=== PATIENT | female | born 1990 | race Caucasian/White ===

== ENCOUNTER → 2018-10-19 | Outpatient (CLI) | payer BC ==
--- NOTE | 2018-10-20 12:34 | ECHOF ---
Referral Reason:R94.31 Abnormal EKG MEASUREMENTS -------- HEIGHT: 160.0 cm WEIGHT: 83.9 kg BP: RVIDd: 2.7 cm (< 3.3) IVSd: 0.9 cm (0.6 - 1.1) LVIDd: 4.2 cm (3.9 - 5.3) LVPWd: 1.0 cm (0.6 - 1.1) IVSs: 1.2 cm LVIDs: 2.7 cm LVPWs: 1.2 cm LAESV Index (A-L): 15.76 ml/m Ao Diam: 2.5 cm (2.0 - 3.7) AV Cusp: 1.9 cm (1.5 - 2.6) LA Diam: 2.3 cm (2.7 - 3.8) MV EXCURSION: 14.577 mm (> 18.000) MV EF SLOPE: 98 mm/s (70 - 150) EPSS: 0.4 cm MV E Sergo: 0.86 m/s MV DecT: 228 ms MV A Sergo: 0.73 m/s MV E/A Ratio: 1.17 RAP: 5.00 mmHg RVSP: 27.68 mmHg FINDINGS -------- Sinus rhythm. This was a technically good study. The left ventricular size is normal. Left ventricular wall thickness is normal. Overall left vent ricular systolic function is normal with, an EF between 55 - 60 %. The right ventricle is normal in size and function. Normal LA size by volume 22+/-6 ml/m2. The right atrium is normal in size. The aortic valve is trileaflet, and appears structurally normal. No aortic stenosis or regurgitation. The mitral valve is normal. There is trace mitral regurgitation. Trace tricuspid regurgitation present. Right ventricular systolic pressure is normal at < 35 mmHg. There is no evidence of pulmonary hypertension. Trace/mild (physiologic) pulmonic regurgitation. The aortic root size is normal. Normal inferior vena cava with normal inspiratory collapse consistent with estimated right atrial pre ssure of 5 mmHg. There is no pericardial effusion. CONCLUSIONS -------- 1. Sinus rhythm. 2. This was a technically good study. 3. The left ventricular size is normal. 4. Left ventricular wall thickness is normal. 5. Overall left ventricular systolic function is normal with, an EF between 55 - 60 %. 6. Normal LA size by volume 22+/-6 ml/m2. 7. The aortic valve is trileaflet, and appears structurally normal. No aortic stenosis or regurgitati on. 8. There is trace mitral regurgitation. 9. Trace tricuspid regurgitation present. 10. Right ventricular systolic pressure is normal at < 35 mmHg. 11. There is no evidence of pulmonary hypertension. 12. Trace/mild (physiologic) pulmonic regurgitation. 13. The aortic root size is normal. 14. There is no pericardial effusion. WAITER WAITRESS: Cecilio Gautam RDCS
== END | disposition home or self-care (01) ==
LOC: RADECHMAIN 16:24
PROVIDERS: ATTEND Family Medicine
DX: I37.1 Nonrheumatic pulmonary valve insufficiency (principal)
CPT/HCPCS: 93306

== ENCOUNTER → 2018-10-30 | Outpatient (CLI) | payer BC ==
--- NOTE | 2018-10-30 14:26 | US ---
EXAMINATION TYPE: US abdomen complete DATE OF EXAM: 10/30/2018 COMPARISON: NONE CLINICAL HISTORY: Rt Upper Quad pain R10.11. EXAM MEASUREMENTS: Liver Length: 12.0 cm Gallbladder Wall: 0.4 cm CBD: 0.4 cm Spleen: 9.6 cm Right Kidney: 11.1 x 3.6 x 4.3 cm Left Kidney: 9.8 x 5.1 x 4.9 cm Patient of large body habitus, severe overlying midline bowel gas. Pancreas: Obscured by bowel gas Liver: visualization somewhat limited, appears wnl as seen Gallbladder: cholelithiasis, echogenic foci seen in wall, wall thickened Evidence for sonographic Slade's sign: no CBD: wnl Spleen: wnl Right Kidney: No hydronephrosis or masses seen Left Kidney: Inferior pole obscured by bowel gas, appears wnl as seen, measured smaller than right, may be due to overlying bowel gas obscuring Upper IVC: wnl Abd Aorta: partially obscured by overlying bowel gas, portions visualized wnl The liver is homogenous. The intrahepatic portion of the IVC and proximal abdominal aorta are within normal limits. Common bile duct is unremarkable. The visualized portions of the pancreas are homo genous. The spleen is unremarkable. Kidneys are symmetric and free of hydronephrosis. No renal les ions are seen. IMPRESSION: 1. Gallbladder is contracted and filled with multiple gallstones. There is also mild gallbladder wall thickening that could relate to chronic cholecystitis. No common bile duct dilatation or sonographic Slade sign to suggest acute cholecystitis. 2. Suboptimal visualization of the left kidney.
--- NOTE | 2018-10-30 14:43 | US ---
EXAMINATION TYPE: US pelvic complete DATE OF EXAM: 10/30/2018 COMPARISON: NONE CLINICAL HISTORY: Rt Upper Quad pain R10.11. TECHNIQUE: Transabdominal (TA). Date of LMP: 09/28/18 EXAM MEASUREMENTS: Uterus: 8.1 x 3.1 x 4.3 cm Endometrial Stripe: 0.8 cm Right Ovary: 2.2 x 1.8 x 1.7 cm Left Ovary: 2.8 x 2.0 x 2.2 cm 1. Uterus: small amount of ff anterior to uterus 2. Endometrium: wnl 3. Right Ovary: wnl 4. Left Ovary: wnl 5. Bilateral Adnexa: Right adnexa, lateral shows ff 6. Posterior cul-de-sac: wnl IMPRESSION: Small amount of pelvic free fluid is likely physiologic in nature. Trace amount of free f luid surrounding the right adnexa may relate to recently ruptured cyst. Otherwise the exam is unremar kable.
== END ==
LOC: RADUSWWP 12:53
PROVIDERS: ATTEND Family Medicine
DX: K80.20 Calculus of gallbladder without cholecystitis without obstruction (principal); K82.9 Disease of gallbladder, unspecified
CPT/HCPCS: 76700; 76856

== ENCOUNTER 2019-11-03 07:15 | Day surgery (SDC) | payer BC ==
[2019-10-29 13:01] VITALS: BMI 38.4
[~2019-11-03 07:15] MED LIST: DEXAMETHASONE SOD PHOSPHATE 10 MG/ML 1 ML VIAL IV ONE; HEPARIN SODIUM,PORCINE 5,000 UNIT/ML 1 ML VIAL SQ ONE; LACTATED RINGERS 1,000 ML IV SCH; LIDOCAINE 1% (10MG/ML) FOR IV START INTRADERMA PRN; MIDAZOLAM 2 MG/2 ML VIAL IV PRN; ONDANSETRON 4 MG/2 ML VIAL IVP ONE; SCOPOLAMINE 1.5MG/72HR PATCH TRANSDERM ONE
[2019-11-03] MEDS ORDERED: GLYCOPYRROLATE 0.2 MG/ML 2 ML VIAL ONE (08:19)
[2019-11-03] MEDS ORDERED: LIDOCAINE 1% INJ 10MG/ML (20 ML MDV) ONE (08:19)
[2019-11-03] MEDS ORDERED: ROCURONIUM BROMIDE 10 MG/ML 5 ML VIAL IV ONE (08:19)
[2019-11-03] MEDS ORDERED: fentaNYL (PF) 50 MCG/ML 2 ML AMP ONE (08:19)
[2019-11-03] MEDS ORDERED: SUCCINYLCHOLINE CHLORIDE 100 MG/5 ML SYR IV ONE (08:19)
[2019-11-03] MEDS ORDERED: KETOROLAC 30 MG/ML 1 ML VIAL ONE (08:19)
[2019-11-03] MEDS ORDERED: PROPOFOL 10 MG/ML 20 ML VIAL IV ONE (08:19)
[2019-11-03] MEDS ORDERED: NEOSTIGMINE 1 MG/ML 10 ML VIAL ONE (08:19)
[2019-11-03] MEDS ORDERED: MIDAZOLAM 2 MG/2 ML VIAL ONE (08:19)
[2019-11-03] MEDS ORDERED: BUPIVACAINE (PF) 0.25% 30 ML VIAL SQ ONE (08:49)
[2019-11-03] MEDS ORDERED: NALOXONE 0.4 MG/ML 1 ML VIAL IV PRN (09:33)
[2019-11-03] MEDS ORDERED: HYDROcodone/APAP 5-325MG 1 EACH TAB PO PRN (09:33)
--- NOTE | 2019-11-03 09:35 | P.OP ---
Date of Procedure: 11/03/19 Procedure(s) Performed: PREOPERATIVE DIAGNOSIS: Chronic cholecystitis POSTOPERATIVE DIAGNOSIS: Same PROCEDURE: Laparoscopic cholecystectomy SURGEON: Crystal EBL: Minimal see anesthesia record ANESTHESIA: Gen. COMPLICATIONS: None OPERATIVE PROCEDURE: The patient was brought and placed on the operating room table in the supine position. The patient was placed under general anesthesia at that time. The abdomen was prepped and draped in the usual sterile fashion. A small vertical infraumbilical incision was made. The fascia was grasped with the Randall forceps. The fascia was retracted anteriorly. The Veress needle was advanced into the peritoneal cavity. The saline drop test was normal. Insufflation took place up to 15 mmHg. A 5 mm optical trocar was advanced and the peritoneal cavity. 2 additional 5 mm trochars were placed in the right upper quadrant under direct visualization. A 12 mm trocar was advanced into the epigastric incision site. The gallbladder was retracted superiorly and laterally. The peritoneum overlying the infundibulum was bluntly dissected. The patient's cystic duct was visualized. The junction between the cystic duct common and hepatic duct was identified. The cystic duct was then divided after placement of 3 12 mm clips on the patient's side and one on the specimen side. The cystic artery was identified and clipped as well. A small vessel was seen along the gallbladder fossa and clipped as well. The gallbladder was then removed from the liver bed using electrocautery. The gallbladder was then removed from the epigastric trocar site with an Endo Catch bag. The gallbladder fossa was irrigated with saline. There was no evidence of any bleeding or biliary drainage seen. The fascia at the 12 millimeter site was closed using a Cole-Beth 0 Vicryl stitch. The trochars were then removed. The skin at all 4 sites was closed using a 4-0 Monocryl stitch. Skin glue was utilized on the incision sites. At the end of this procedure the sponge and needle counts were correct. DISPOSITION: Stable to the recovery room
[2019-11-03] MEDS: HYDROmorphone 0.5 MG/0.5 ML SYRINGE IVP PRN ×3 (09:40→10:01)
[2019-11-03 09:51] VITALS: TEMP 97.4
[2019-11-03] MEDS ORDERED: LACTATED RINGERS 1,000 ML IV ONE (10:19)
[2019-11-03 11:32] VITALS: BP 113/77; PULSE 101; RESP 20
== END 2019-11-03 12:08 | disposition home or self-care (01) ==
LOC: OR 07:15
PROVIDERS: ATTEND Surgery
DX: K81.1 Chronic cholecystitis (principal); F32.9 Major depressive disorder, single episode, unspecified; E66.9 Obesity, unspecified; Z68.39 Body mass index [BMI] 39.0-39.9, adult; I10 Essential (primary) hypertension; G47.00 Insomnia, unspecified; Z82.3 Family history of stroke; Z82.49 Family history of ischemic heart disease and other diseases of the circulatory system; Z80.8 Family history of malignant neoplasm of other organs or systems; Z79.1 Long term (current) use of non-steroidal anti-inflammatories (NSAID); Z79.899 Other long term (current) drug therapy; Z88.2 Allergy status to sulfonamides; Z88.8 Allergy status to other drugs, medicaments and biological substances
CPT/HCPCS: 47562; 81025; 88304; J2250; J1644; J1100; J2710; J0690; J2405; J2001; J3010; J1885; J0330; J2704; J1170

== ENCOUNTER → 2020-06-23 | Outpatient (CLI) | payer BC ==
--- NOTE | 2020-06-23 14:20 | US ---
EXAMINATION TYPE: US pelvic complete DATE OF EXAM: 06/23/2020 COMPARISON: Pelvic ultrasound October 30, 2018 CLINICAL HISTORY: R10.2 pelvic pain. pelvic pain before cycles TECHNIQUE: TA. Transabdominal sonographic images of the pelvis were acquired. Date of LMP: 06/18/2020 EXAM MEASUREMENTS: Uterus: 8.1 x 2.8 x 3.9 cm Endometrial Stripe: 0.7 cm Right Ovary: 3.0 x 2.2 x 2.0 cm Left Ovary: 2.7 x 2.0 x 2.1 cm 1. Uterus: Anteverted wnl 2. Endometrium: wnl 3. Right Ovary: wnl 4. Left Ovary: wnl 5. Bilateral Adnexa: wnl 6. Posterior cul-de-sac: wnl IMPRESSION: Unremarkable transabdominal pelvic ultrasound.
== END | disposition home or self-care (01) ==
LOC: RADUSWWP 13:32
PROVIDERS: ATTEND Family Medicine
DX: R10.2 Pelvic and perineal pain (principal)
CPT/HCPCS: 76856

== ENCOUNTER → 2021-06-06 | Outpatient (CLI) | payer BC ==
[2021-06-06 16:04] LABS: Basophils % (A) 0 %; Eosinophils # (A) 0.1 k/uL (0-0.7); Eosinophils % (A) 1 %; HCT 37.3 % (34.0-46.0); HGB 12.1 gm/dL (11.4-16.0); Lymphocytes # (A) 1.9 k/uL (1.0-4.8); Lymphocytes % (A) 22 %; MCH 28.9 pg (25.0-35.0); MCHC 32.5 g/dL (31.0-37.0); MCV 88.9 fL (80.0-100.0); Mean Platelet Volume 7.7; Monocytes # (A) 0.5 k/uL (0-1.0); Monocytes % (A) 6 %; Neutrophils # (A) 5.9 k/uL (1.3-7.7); Neutrophils % (A) 70 %; Platelet Count 300 k/uL (150-450); RBC 4.19 m/uL (3.80-5.40); RDW 12.2 % (11.5-15.5); WBC 8.5 k/uL (3.8-10.6)
== END | disposition home or self-care (01) ==
LOC: LABPAT 15:20
PROVIDERS: ATTEND Obstetrics & Gynecology
DX: O02.1 Missed abortion (principal); O10.919 Unspecified pre-existing hypertension complicating pregnancy, unspecified trimester; O99.891 Other specified diseases and conditions complicating pregnancy; R00.1 Bradycardia, unspecified; Z3A.00 Weeks of gestation of pregnancy not specified
CPT/HCPCS: 36415; 85025; 93005

== ENCOUNTER 2021-06-08 07:37 | Day surgery (SDC) | payer BC ==
[2021-06-06 10:10] VITALS: BMI 37.5
[~2021-06-08 07:37] MED LIST changes: -DEXAMETHASONE SOD PHOSPHATE 10 MG/ML 1 ML VIAL IV ONE; +DEXAMETHASONE SOD PHOSPHATE 4 MG/ML 1 ML VIAL IV ONE; -HEPARIN SODIUM,PORCINE 5,000 UNIT/ML 1 ML VIAL SQ ONE; -LIDOCAINE 1% (10MG/ML) FOR IV START INTRADERMA PRN; +Pre Op ABX Message 1 EACH MISC MISCELLANE ONE
[2021-06-08] MEDS ORDERED: PROPOFOL 10 MG/ML 20 ML VIAL IV ONE (09:24)
[2021-06-08] MEDS ORDERED: fentaNYL (PF) 50 MCG/ML 2 ML AMP ONE (09:24)
[2021-06-08] MEDS ORDERED: LIDOCAINE 1% INJ 10MG/ML (20 ML MDV) ONE (09:24)
[2021-06-08] MEDS ORDERED: MIDAZOLAM 2 MG/2 ML VIAL ONE (09:24)
[2021-06-08] MEDS ORDERED: KETOROLAC 15 MG/ML 1 ML VIAL ONE (09:24)
[2021-06-08] MEDS ORDERED: ONDANSETRON 4 MG/2 ML VIAL IVP PRN (10:02)
[2021-06-08] MEDS ORDERED: SIMETHICONE 80 MG CHEWABLE PO PRN (10:02)
[2021-06-08] MEDS ORDERED: Acetaminophen-Codeine 300-30mg TAB PO PRN ×2 (10:02)
[2021-06-08] MEDS ORDERED: METOCLOPRAMIDE 5 MG/ML 2 ML VIAL IVP PRN (10:02)
[2021-06-08] MEDS ORDERED: KETOROLAC 15 MG/ML 1 ML VIAL IVP PRN (10:02)
[2021-06-08] MEDS ORDERED: diphenhydrAMINE 50 MG/ML 1 ML VIAL IVP PRN (10:02)
--- NOTE | 2021-06-08 10:06 | P.OP ---
Date of Procedure: 06/08/21 Preoperative Diagnosis: #1. 7+ weeks missed Postoperative Diagnosis: Same Procedure(s) Performed: #1. Dilation and aspiration curettage Anesthesia: other (Gen. by LMA) Surgeon: Hill Diggs Estimated Blood Loss (ml): 100 IV fluids (ml): 400 Urine output (ml): 30 Pathology: other (Endometrial contents) Condition: stable Disposition: PACU Operative Findings: Preoperative pelvic examination inserted a roughly 7 week slightly anteverted mobile normal shaped uterus with normal adnexa bilaterally. Intraoperatively, the uterus sounded to approximately 10 cm. A #8 curved aspiration curet was utilized and there was tissue clearly seen passing through the tubing on the first pass. The typical gritty texture was encountered with sharp curettage. Description of Procedure: The patient was prepped and draped in usual fashion after general anesthesia was initially by the anesthesiologist. A weighted speculum was placed and the bladder drained of approximately 30 mL of clear edil urine. The anterior lip the cervix was grasped with a single-tooth tenaculum and the uterus sounded to 10 cm as noted above. Serial dilation was carried out to admit a #8 curved aspiration curet which was placed to the fundus and suction applied. After adequate suction had been built, thorough and circumferential curettage was carried out from fundus to cervix with tissue clearly seen passing through the tubing on the first pass. A second pass was made at which time no further tissue was noted. The suction curet was set aside for a small sharp curette was utilized to thoroughly and circumferentially curet the lining of the uterus with the typical gritty texture encountered and no further tissue noted. One last pass was made with aspiration curet at which time no further tissue was noted. All instrumentation was removed. There was no significant ongoing bleeding from either the cervix or the tenaculum site. Estimated blood loss for the case is approximately 100 mL. There were no complications. All sponge, instrument, and needle counts were correct. The patient tolerated the procedure well and proceeded to the recovery room in stable condition.
[2021-06-08 10:14] VITALS: TEMP 97.8
[2021-06-08] MEDS ORDERED: LACTATED RINGERS 1,000 ML IV SCH (10:15)
[2021-06-08] MEDS: HYDROmorphone 0.5 MG/0.5 ML SYRINGE IVP PRN ×2 (10:19→10:33)
[2021-06-08] MEDS ORDERED: LACTATED RINGERS 1,000 ML IV ONE (10:34)
[2021-06-08 11:04] VITALS: RESP 16
[2021-06-08 11:31] VITALS: BP 118/80; PULSE 56
== END 2021-06-08 11:32 | disposition home or self-care (01) ==
LOC: OR 07:37
PROVIDERS: ATTEND Obstetrics & Gynecology
DX: O02.1 Missed abortion (principal); I10 Essential (primary) hypertension; Z90.49 Acquired absence of other specified parts of digestive tract; Z98.890 Other specified postprocedural states; Z82.49 Family history of ischemic heart disease and other diseases of the circulatory system; Z82.3 Family history of stroke; Z83.3 Family history of diabetes mellitus; Z80.3 Family history of malignant neoplasm of breast; Z79.3 Long term (current) use of hormonal contraceptives; Z79.899 Other long term (current) drug therapy; Z88.2 Allergy status to sulfonamides; Z88.8 Allergy status to other drugs, medicaments and biological substances
CPT/HCPCS: 59820; 86900; 86901; 88305; 86850; J2250; J1100; J2405; J2001; J3010; J1885; J2704; J1170

== ENCOUNTER → 2021-10-10 | Outpatient (CLI) | payer BC | END | disposition home or self-care (01) | LOC: LABWHC1 10:24 | PROVIDERS: ATTEND Obstetrics & Gynecology | DX: O20.0 Threatened abortion (principal); Z3A.00 Weeks of gestation of pregnancy not specified | CPT/HCPCS: 36415; 84702; 86850; 86900; 86901 ==

== ENCOUNTER → 2021-10-12 | Outpatient (CLI) | payer BC | END | disposition home or self-care (01) | LOC: LABWHC1 10:56 | PROVIDERS: ATTEND Obstetrics & Gynecology | DX: O20.0 Threatened abortion (principal); Z3A.00 Weeks of gestation of pregnancy not specified | CPT/HCPCS: 36415; 84702 ==

== ENCOUNTER 2022-05-10 16:00 | Inpatient (IN) | payer BC ==
[2022-05-10] MEDS ORDERED: DINOPROSTONE 10 MG INSERT.ER VAGINAL ONE (16:19)
[2022-05-10 17:18] LABS: Glucose,Whole Blood 115 mg/dL (70-110)
[2022-05-10] MEDS: LABETALOL 100 MG TAB PO SCH (22:58)
[2022-05-11] MEDS: BUTORPHANOL 1 MG/ML 1 ML VIAL IV PRN ×3 (00:06→06:18)
[2022-05-11 00:33] LABS: Basophils % (A) 1 %; Eosinophils # (A) 0.1 k/uL (0-0.7); Eosinophils % (A) 1 %; HCT 33.1 % (34.0-46.0); HGB 10.9 gm/dL (11.4-16.0); Lymphocytes # (A) 1.6 k/uL (1.0-4.8); Lymphocytes % (A) 18 %; MCH 28.6 pg (25.0-35.0); MCHC 33.1 g/dL (31.0-37.0); MCV 86.5 fL (80.0-100.0); Mean Platelet Volume 9.3; Monocytes # (A) 0.4 k/uL (0-1.0); Monocytes % (A) 5 %; Neutrophils # (A) 6.7 k/uL (1.3-7.7); Neutrophils % (A) 75 %; Platelet Count 228 k/uL (150-450); RBC 3.82 m/uL (3.80-5.40); RDW 13.5 % (11.5-15.5); WBC 8.9 k/uL (3.8-10.6)
[2022-05-11] MEDS ORDERED: CARBOPROST TROMETHAMINE 250 MCG/ML 1 ML AMP IM PRN (05:41)
[2022-05-11] MEDS ORDERED: TERBUTALINE 1 MG/ML VIAL SQ PRN (05:41)
[2022-05-11] MEDS ORDERED: METHYLERGONOVINE 0.2 MG/ML 1 ML AMP IM PRN (05:41)
[2022-05-11] MEDS ORDERED: OXYTOCIN 10 UNIT/ML 1 ML VIAL IM PRN (05:41)
[2022-05-11] MEDS ORDERED: LIDOCAINE 0.5% (PF) 5 MG/ML (50 ML SDV) SQ PRN (05:41)
[2022-05-11] MEDS: LACTATED RINGERS 1,000 ML IV SCH ×3 (05:45→10:28)
[2022-05-11] MEDS ORDERED: OXYTOCIN 30 UNITS/500 ML NS 30 UNIT in SALINE 1 500ML.BAG IV SCH (05:45)
[2022-05-11 05:53] LABS: Glucose,Whole Blood 114 mg/dL (70-110)
[2022-05-11] MEDS ORDERED: BUPIVACAINE (PF) 0.25% 30 ML VIAL ONE (08:09)
[2022-05-11] MEDS ORDERED: SODIUM CHLORIDE 0.9% 100 ML BAG ONE (08:09)
[2022-05-11] MEDS ORDERED: fentaNYL (PF) 50 MCG/ML 5 ML AMP ONE (08:09)
--- NOTE | 2022-05-11 09:01 | P.HPOB ---
History of Present Illness H&P Date: 05/10/22 Chief Complaint: induction of labor, GHTN, GDMA1 32 year old presents at 38 weeks 6 days for 2 stage induction of labor. Her cervix is closed, thick and high. She is octaviano irregularly. heart tones 135 with moderate variability and reactive. She has GHTN controlled by labetalol 100mg bid. Review of Systems All systems: negative Constitutional: Denies chills, Denies fever Eyes: denies blurred vision, denies pain Ears, nose, mouth and throat: Denies headache, Denies sore throat Cardiovascular: Denies chest pain, Denies shortness of breath Respiratory: Denies cough Gastrointestinal: Denies abdominal pain, Denies diarrhea, Denies nausea, Denies vomiting Genitourinary: Denies dysuria, Denies hematuria Musculoskeletal: Denies myalgias Integumentary: Denies pruritus, Denies rash Neurological: Denies numbness, Denies weakness Psychiatric: Denies anxiety, Denies depression Endocrine: Denies fatigue, Denies weight change Past Medical History Past Medical History: Hypertension Additional Past Medical History / Comment(s): GALL BLADDER DYSFUNCTION - removed 2018, gestational diabetes diet controlled History of Any Multi-Drug Resistant Organisms: None Reported Past Surgical History: Adenoidectomy, Cholecystectomy, Tonsillectomy Past Anesthesia/Blood Transfusion Reactions: No Reported Reaction, Postoperative Nausea & Vomiting (PONV) Past Psychological History: No Psychological Hx Reported Smoking Status: Never smoker Past Alcohol Use History: None Reported Past Drug Use History: None Reported - Past Family History Mother Family Medical History: CVA/TIA Additional Family Medical History / Comment(s): MOM HAD STROKE R/T BLOOD CLOT IN NECK. Medications and Allergies Home Medications Medication Instructions Recorded Confirmed Type Labetalol [Trandate] 50 mg PO BID 06/06/21 05/10/22 History Aspirin 1 tab PO DAILY 05/06/22 05/10/22 History Vit No.179/Iron/Folic 1 tab PO DAILY 05/06/22 05/10/22 History [ Tablet] Allergies Allergy/AdvReac Type Severity Reaction Status Date / Time medroxyprogesterone Allergy Rash/Hives Verified 05/06/22 14:38 [From Depo-Provera] Exam Osteopathic Statement: *. No significant issues noted on an osteopathic structural exam other than those noted in the History and Physical/Consult. Vital Signs Temp Pulse Resp BP Pulse Ox 05/10/22 16:18 98.3 F 88 18 129/92 99 Intake and Output 05/10/22 05/11/22 05/11/22 22:59 06:59 14:59 Other: # Voids 2 3 Weight 102.058 kg Heart: Regular rate and rhythm Lungs: Clear to auscultation bilaterally Abdomen: Soft, nontender Extremities: Negative Homans sign Results Result Diagrams: 05/11/22 00:15 Abnormal Lab Results - Last 24 Hours (Table) 05/10/22 05/11/22 05/11/22 Range/Units 17:16 00:15 05:52 Hgb 10.9 L (11.4-16.0) gm/dL Hct 33.1 L (34.0-46.0) % POC Glucose (mg/dL) 115 H 114 H (70-110) mg/dL Assessment and Plan (1) Encounter for induction of labor Current Visit: Yes Status: Acute Code(s): Z34.90 - ENCNTR FOR SUPRVSN OF NORMAL , UNSP, UNSP TRIMESTER SNOMED Code(s): 547286194 (2) Gestational hypertension Current Visit: Yes Status: Acute Code(s): O13.9 - GESTATIONAL HTN W/O SIGNIFICANT PROTEINURIA, UNSP TRIMESTER SNOMED Code(s): 71539794 (3) Gestational diabetes Current Visit: Yes Status: Acute Code(s): O24.419 - GESTATIONAL DIABETES MELLITUS IN , UNSP CONTROL SNOMED Code(s): 95300779 Plan: 1. induction of labor with cervidil and then amniotomy and pitocin in the morning
[2022-05-11] MEDS: LABETALOL 100 MG TAB PO SCH (10:04)
[2022-05-11] MEDS ORDERED: diphenhydrAMINE 25 MG CAP PO PRN (18:43)
[2022-05-11] MEDS ORDERED: SIMETHICONE 80 MG CHEWABLE PO PRN (18:43)
[2022-05-11] MEDS ORDERED: BENZOCAINE/MENTHOL SPRAY 1 GM/SPRAY AEROSOL TOPICAL PRN (18:43)
[2022-05-11] MEDS ORDERED: LANOLIN CREAM 5 GM TUBE TOPICAL PRN (18:43)
[2022-05-11] MEDS ORDERED: HYDROCORTISONE 2.5% RECTAL CREAM 30 GM TUBE RECTAL PRN (18:43)
[2022-05-11] MEDS ORDERED: diphenhydrAMINE 50 MG CAP PO PRN (18:43)
[2022-05-11] MEDS ORDERED: ACETAMINOPHEN TAB 325 MG TAB PO PRN (18:43)
[2022-05-11] MEDS ORDERED: ZOLPIDEM 5 MG TAB PO PRN (18:43)
[2022-05-11] MEDS: SENNOSIDES-DOCUSATE SODIUM 1 EACH TAB PO SCH (19:10)
[2022-05-11] MEDS: IBUPROFEN 600 MG TAB PO PRN (19:10)
[2022-05-12] MEDS: LABETALOL 100 MG TAB PO SCH ×3 (03:00→21:06)
--- NOTE | 2022-05-12 06:21 | P.PROBDLV ---
Vaginal Delivery Note - . Vaginal Delivery Note: 32 year old presents at 38 weeks 6 days for 2 stage induction of labor. Her cervix is closed, thick and high. She is octaviano irregularly. heart tones 135 with moderate variability and reactive. She has GHTN controlled by labetalol 100mg bid. Cervidil was placed and then removed 12 hours later. Her cervix was so closed, thin -2. Her membranes spontaneously ruptured at 5:45 AM and clear fluid noted. Soon after that she was 1 cm dilated 100% effaced and -2 station. Pitocin augmentation was started. When she was uncomfortable she did get an epidural. Her cervix was completely dilated at 1604. She pushed for 2 hours and made good progress but was starting to have fatigue.. The patient had all and discussed the vacuum-assisted vaginal delivery with the patient, the father of the baby, nursing staff and myself. We went over risks and benefits. Patient consented to vacuum extracted delivery. The vacuum was placed after the bladder was drained of all urine and position of the baby was noted to be OA and +2 station. There were 3 pulls's and infant's head delivered over intact perineum under epidural anesthesia at 1806. Head delivered OA, anterior shoulder delivered gentle downward guidance for by posterior shoulder and rest of body. Nose and mouth bulb suctioned, cord clamped and cut, infant placed on mother's abdomen. Apgars 8, 9, weight 7 lbs. 12 oz. Placenta delivered spontaneously, intact with three-vessel cord at 1809. Vagina, cervix, and perineum were inspected. First-degree midline laceration was repaired with 3-0 Vicryl. Estimated blood loss 150 mL. Mother and baby in stable condition.
--- NOTE | 2022-05-12 06:24 | P.DS ---
Providers Date of admission: 05/10/22 16:00 Expected date of discharge: 05/12/22 Attending physician: Susanne Brambila Primary care physician: Stated None - Discharge Diagnosis(es) (1) Encounter for induction of labor Current Visit: Yes Status: Resolved (2) Gestational hypertension Current Visit: Yes Status: Resolved (3) Gestational diabetes Current Visit: Yes Status: Resolved (4) Vacuum-assisted vaginal delivery Current Visit: Yes Status: Acute Hospital Course: Patient presented for induction of labor for gestational hypertension and gestational diabetes. She underwent a vacuum-assisted vaginal delivery. course was uncomplicated. She denies nausea, vomiting, chest pain, shortness of breath or any calf pain. Patient will be discharged home day #1 in stable condition to follow-up with me in 6 weeks. Plan - Discharge Summary New Discharge Prescriptions: New Ibuprofen [Motrin] 600 mg PO Q6HR PRN #30 tab PRN Reason: Mild Pain (Scale 1 To 3) No Action Labetalol [Trandate] 50 mg PO BID Vit No.179/Iron/Folic [ Tablet] 1 tab PO DAILY Aspirin 1 tab PO DAILY Discharge Medication List Labetalol [Trandate] 50 mg PO BID 06/06/21 [History] Aspirin 1 tab PO DAILY 05/06/22 [History] Vit No.179/Iron/Folic [ Tablet] 1 tab PO DAILY 05/06/22 [History] Ibuprofen [Motrin] 600 mg PO Q6HR PRN #30 tab 05/12/22 [Rx] Follow up Appointment(s)/Referral(s): Susanne Brambila DO [Doctor of Osteopathic Medicine] - 6 Weeks Discharge Disposition: HOME SELF-CARE
[2022-05-12 07:27] LABS: Basophils % (A) 0 %; Eosinophils # (A) 0.1 k/uL (0-0.7); Eosinophils % (A) 0 %; HCT 29.6 % (34.0-46.0); HGB 9.9 gm/dL (11.4-16.0); Lymphocytes # (A) 1.8 k/uL (1.0-4.8); Lymphocytes % (A) 13 %; MCH 29.8 pg (25.0-35.0); MCHC 33.6 g/dL (31.0-37.0); MCV 88.7 fL (80.0-100.0); Mean Platelet Volume 9.1; Monocytes # (A) 0.5 k/uL (0-1.0); Monocytes % (A) 4 %; Neutrophils # (A) 11.1 k/uL (1.3-7.7); Neutrophils % (A) 81 %; Platelet Count 264 k/uL (150-450); RBC 3.33 m/uL (3.80-5.40); RDW 14.2 % (11.5-15.5); WBC 13.7 k/uL (3.8-10.6)
[2022-05-12] MEDS: SENNOSIDES-DOCUSATE SODIUM 1 EACH TAB PO SCH ×2 (08:05→21:06)
[2022-05-12] MEDS: IBUPROFEN 600 MG TAB PO PRN ×3 (08:05→21:07)
[2022-05-13] MEDS: IBUPROFEN 600 MG TAB PO PRN (08:47)
[2022-05-13] MEDS: LABETALOL 100 MG TAB PO SCH (08:48)
[2022-05-13 09:01] VITALS: BP 124/74; PULSE 95; RESP 14; TEMP 98.1
[2022-05-13] MEDS: SENNOSIDES-DOCUSATE SODIUM 1 EACH TAB PO SCH (09:30)
== END 2022-05-13 15:31 | disposition home or self-care (01) | DRG 807 ==
LOC: 4FBP 16:00
PROVIDERS: ADMIT Obstetrics & Gynecology; ATTEND Obstetrics & Gynecology
PROC: 10D07Z6 Extraction of Products of Conception, Vacuum, Via Natural or Artificial Opening (ICD-10-PCS; principal; 2022-05-11)
PROC: 0HQ9XZZ Repair Perineum Skin, External Approach (ICD-10-PCS; 2022-05-11)
PROC: 4A0HXCZ Measurement of Products of Conception, Cardiac Rate, External Approach (ICD-10-PCS; 2022-05-11)
PROC: 10907ZC Drainage of Amniotic Fluid, Therapeutic from Products of Conception, Via Natural or Artificial Opening (ICD-10-PCS; 2022-05-11)
PROC: 3E033VJ Introduction of Other Hormone into Peripheral Vein, Percutaneous Approach (ICD-10-PCS; 2022-05-11)
DX: O13.4 Gestational [pregnancy-induced] hypertension without significant proteinuria, complicating childbirth (principal); Z37.0 Single live birth; O24.420 Gestational diabetes mellitus in childbirth, diet controlled; O70.0 First degree perineal laceration during delivery; Z3A.38 38 weeks gestation of pregnancy; Z79.82 Long term (current) use of aspirin; Z88.8 Allergy status to other drugs, medicaments and biological substances; Z87.19 Personal history of other diseases of the digestive system; Z90.49 Acquired absence of other specified parts of digestive tract
CPT/HCPCS: 85025; 86850; 86900; 86901

== ENCOUNTER → 2024-12-10 | Outpatient (CLI) | payer OTHER ==
[2024-12-10 18:18] LABS: Basophils # (A) 0.06 X 10*3/uL (0.00-0.10); Basophils % (A) 0.6 %; Eosinophils # (A) 0.19 X 10*3/uL (0.04-0.35); HCT 40.4 % (37.2-46.3); Lymphocytes # (A) 2.46 X 10*3/uL (0.90-5.00); Lymphocytes % (A) 25.9 %; MCH 28.8 pg (27.0-32.0); MCHC 32.2 g/dL (32.0-37.0); MCV 89.6 FL (80.0-97.0); Mean Platelet Volume 9.9 FL (9.5-12.2); Monocytes # (A) 0.55 X 10*3/uL (0.20-1.00); Monocytes % (A) 5.8 %; NRBC Per 100 WBC 0 X 10*3/uL (0.00-0.01); Neutrophils # (A) 6.22 X 10*3/uL (1.80-7.70); Neutrophils % (A) 65.4 %; Platelet Count 335 X 10*3/uL (140-440); RBC 4.51 X 10*6/uL (4.10-5.20); RDW 12.7 % (11.5-14.5); WBC 9.51 X 10*3/uL (4.50-10.00)
[2024-12-10 19:14] LABS: ALT 30 U/L (8-44); AST 26 U/L (13-35); Albumin 4.4 g/dL (3.8-4.9); Albumin/Globulin Ratio 1.76 Ratio (1.60-3.17); Alkaline Phosphatase 86 U/L (41-126); Blood Urea Nitrogen 19.1 mg/dL (9.0-27.0); Calcium 9.7 mg/dL (8.7-10.3); Carbon Dioxide 24.5 mmol/L (21.6-31.8); Chloride 105 mmol/L (96-109); Chol/HDL Ratio 3.43 Ratio; Globulin 2.5 g/dL (1.6-3.3); Glucose 94 mg/dL (70-110); LDL Cholesterol,Calculated 88.2 mg/dL (0.0-131.0); Potassium 4.7 mmol/L (3.5-5.5); Sodium 141 mmol/L (135-145); T4, Free (Free Thyroxine) 1.12 ng/dL (0.80-1.80); Total Bilirubin 0.4 mg/dL (0.3-1.2); Total Protein 6.9 g/dL (6.2-8.2)
== END | disposition home or self-care (01) ==
LOC: LABWHC1 11:44
PROVIDERS: ATTEND Family Medicine
DX: Z00.00 Encounter for general adult medical examination without abnormal findings (principal); E66.01 Morbid (severe) obesity due to excess calories; L55.9 Sunburn, unspecified; N92.6 Irregular menstruation, unspecified; N83.209 Unspecified ovarian cyst, unspecified side; R53.83 Other fatigue; Z79.899 Other long term (current) drug therapy
CPT/HCPCS: 36415; 80053; 80061; 82040; 82306; 82533; 83036; 83525; 84270; 84403; 84439; 84443; 85025